=== PATIENT | male | born 1950 | race Caucasian/White ===

== ENCOUNTER 2017-01-07 09:16 | Day surgery (SDC) | payer MEDICARE ==
[2017-01-05 12:55] VITALS: BMI 19.2
[~2017-01-07 09:16] MED LIST: LACTATED RINGERS 1,000 ML IV SCH; LIDOCAINE 1% 20 ML VIAL (10MG/ML) FOR IV START INTRADERMA PRN
[2017-01-07 09:46] VITALS: RESP 16; TEMP 97
[2017-01-07 09:53] LABS: Glucose,Whole Blood 159 mg/dL (75-99)
[2017-01-07] MEDS ORDERED: PROPOFOL 10 MG/ML 20 ML VIAL IV ONE (10:44)
--- NOTE | 2017-01-07 11:02 | P.PCN ---
Date of Procedure: 01/07/17 Procedure(s) Performed: BRIEF HISTORY: Patient is a 66-year-old pleasant white male, scheduled for an elective colonoscopy as a part of screening for colorectal neoplasia. He does have family history of colon cancer. PROCEDURE PERFORMED: Colonoscopy. PREOPERATIVE DIAGNOSIS: Screening for colon cancer and family history of colon cancer. IV sedation per Anesthesia. PROCEDURE: After informed consent was obtained, the patient, was brought into the endoscopy unit. IV sedation was administered by Anesthesia under continuous monitoring. Digital rectal examination was normal. Initially the Olympus CF- 160 flexible video colonoscope was then inserted in the rectum, gradually advanced into the cecum without any difficulty. Careful examination was performed as the scope was gradually being withdrawn. Ileocecal valve and the appendiceal orifice were visualized and appeared normal. Prep was excellent. Mucosa of the cecum, ascending colon, transverse colon, descending colon, sigmoid colon, and rectum appeared normal. Retroflexion was performed in the rectum and no lesions were seen. The patient tolerated the procedure well. IMPRESSION: Normal-appearing colon from rectum to cecum with no evidence of colorectal neoplasia . RECOMMENDATIONS: Findings of this examination were discussed with the patient as well as his family. He was advised to have a repeat screening colonoscopy in 5 years from now because of a family history of colon cancer.
[2017-01-07 11:28] VITALS: BP 117/74; PULSE 68
== END 2017-01-07 11:53 | disposition home or self-care (01) ==
LOC: ORWHC2ENDO 09:16
PROVIDERS: ATTEND Internal Medicine Gastroenterology
DX: Z12.11 Encounter for screening for malignant neoplasm of colon (principal); Z80.0 Family history of malignant neoplasm of digestive organs; I48.91 Unspecified atrial fibrillation; J45.909 Unspecified asthma, uncomplicated; N40.0 Benign prostatic hyperplasia without lower urinary tract symptoms; E11.9 Type 2 diabetes mellitus without complications; Z79.01 Long term (current) use of anticoagulants; Z79.84 Long term (current) use of oral hypoglycemic drugs; Z79.899 Other long term (current) drug therapy
CPT/HCPCS: J2704; G0105

== ENCOUNTER 2022-01-02 08:43 | Day surgery (SDC) | payer MEDICARE ==
[2021-12-22 12:21] VITALS: BMI 30.2
[~2022-01-02 08:43] MED LIST changes: +ALPRAZolam 0.25 MG TAB PO PRN; +ALPRAZolam 0.5 MG TAB PO PRN; +ASPIRIN 325 MG TAB PO STA; +ATORVASTATIN 80 MG TAB PO STA; +HEPARIN SODIUM,PORCINE 10,000 UNIT in SODIUM CHLORIDE 0.9% 1,000 ML IRRIGATION PRN; +HEPARIN SODIUM,PORCINE 2,500 UNIT in SODIUM CHLORIDE 0.9% 250 ML IRRIGATION PRN; -LACTATED RINGERS 1,000 ML IV SCH; -LIDOCAINE 1% 20 ML VIAL (10MG/ML) FOR IV START INTRADERMA PRN; +NITROGLYCERIN SL TABS 0.4 MG TAB SUBLINGUAL PRN; +SODIUM CHLORIDE 0.9% 1,000 ML in EMPTY BAG 1 BAG IV SCH
[2022-01-02] MEDS ORDERED: SODIUM CHLORIDE 0.9% 1,000 ML IV ONE ×2 (09:00→10:00)
[2022-01-02 09:12] LABS: Glucose,Whole Blood 148 mg/dL (75-99)
[2022-01-02 09:27] LABS: Basophils # (A) 0.1 k/uL (0-0.2); Basophils % (A) 1 %; Eosinophils # (A) 0.4 k/uL (0-0.7); Eosinophils % (A) 4 %; HCT 51.1 % (39.0-53.0); HGB 17.4 gm/dL (13.0-17.5); Lymphocytes # (A) 1.3 k/uL (1.0-4.8); Lymphocytes % (A) 14 %; MCHC 34.1 g/dL (31.0-37.0); MCV 91.1 fL (80.0-100.0); Mean Platelet Volume 7.5; Monocytes # (A) 0.6 k/uL (0-1.0); Monocytes % (A) 6 %; Neutrophils # (A) 7.1 k/uL (1.3-7.7); Neutrophils % (A) 74 %; Platelet Count 209 k/uL (150-450); RBC 5.61 m/uL (4.30-5.90); WBC 9.6 k/uL (3.8-10.6)
[2022-01-02 09:29] LABS: INR 1.3 (<1.2)
[2022-01-02 09:40] LABS: African American GFR (CKD) >90 (>60 ml/min/1.73 sqM); Anion Gap 8 mmol/L; Blood Urea Nitrogen 14 mg/dL (9-20); Calcium 9.3 mg/dL (8.4-10.2); Carbon Dioxide 28 mmol/L (22-30); Chloride 104 mmol/L (98-107); Glucose 163 mg/dL (74-99); Non-African American GFR(CKD) 81 (>60 ml/min/1.73 sqM); Potassium 4.1 mmol/L (3.5-5.1); Sodium 140 mmol/L (137-145)
[2022-01-02] MEDS ORDERED: fentaNYL (PF) 50 MCG/ML 2 ML AMP ONE (10:11)
[2022-01-02] MEDS ORDERED: VERAPAMIL 2.5 MG/ML 2 ML AMP ONE (10:11)
[2022-01-02] MEDS ORDERED: HEPARIN SODIUM 1,000 UN/ML (10ML VL) ONE (10:12)
[2022-01-02] MEDS ORDERED: fentaNYL (PF) 50 MCG/ML 2 ML AMP IVP ONE (10:41)
[2022-01-02] MEDS ORDERED: MIDAZOLAM 2 MG/2 ML VIAL IVP ONE (10:41)
[2022-01-02] MEDS ORDERED: LIDOCAINE 1% INJ 10MG/ML (5 ML VIAL-PF) SQ ONE (10:44)
[2022-01-02] MEDS ORDERED: VERAPAMIL SYRINGE (5 MG/10 ML) INTRAARTER ONE (10:46)
[2022-01-02] MEDS ORDERED: HEPARIN SODIUM 1,000 UN/ML (10ML VL) IV ONE (10:48)
[2022-01-02] MEDS ORDERED: IOPAMIDOL-370 100ML BTL INJ ONE (11:16)
--- NOTE | 2022-01-02 11:58 | CC ---
CARDIAC CATHETERIZATION REPORT INDICATION: Chest pain with abnormal stress test showing ischemia in LAD distribution. PROCEDURE NOTE: After obtaining informed consent, left heart catheterization and coronary angiogram were performed via the right radial artery using size 3.5 right Gil, 3.5 and 4 left Gil catheters, and a pigtail catheter to obtain left ventricular hemodynamics. Patient tolerated the procedure well without any obvious immediate complications. He received moderate conscious sedation and total sedation time was 21 minutes. With a micropuncture needle using Seldinger technique, right radial artery access was obtained and patient received 5 mg of verapamil and 5000 units of heparin as per protocol. Catheters and wires were manipulated into the ascending aorta under fluoroscopic guidance. Patient tolerated the procedure well without any obvious immediate complications. A TR band was used for hemostasis. FINDINGS: HEMODYNAMICS: Left ventricular end-diastolic pressure is 14 mm. There is no significant gradient across the aortic valve. LEFT VENTRICULOGRAM: Left ventriculogram was not performed. ANGIOGRAPHIC DATA: Left main coronary artery is a normal-sized vessel and is free of stenosis. It divides into left anterior descending coronary artery and circumflex coronary artery. Circumflex coronary artery is a large codominant system and is free of significant disease. It gives [id number] collaterals to the distal LAD. There is a long segment of occlusion in the proximal LAD. Right coronary artery is a large codominant vessel and is free of significant disease. 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 I reviewed angiographic data with Dr. Joseph Calderon, the on-call roaster helper, who felt that catheter-based revascularization of the LAD is complicated and high-risk. Hence we decided to treat him with optimal medical therapy and if he has symptoms in spite of this refer him for intervention on a chronic totally occluded vessel. I discussed these issues at length with the patient. He understands and is in agreement with the plan. MMODL / IJN: [id number] /
[2022-01-02] MEDS ORDERED: RX INFO: IV CONTRAST WAS GIVEN 1 EACH MISC MISCELLANE PRN (13:17)
[2022-01-02] MEDS ORDERED: SODIUM CHLORIDE 0.9% 1,000 ML IV SCH (13:30)
[2022-01-02 13:56] VITALS: RESP 18; TEMP 97.8
[2022-01-02 15:10] VITALS: BP 152/61; PULSE 66
== END 2022-01-02 15:05 | disposition home or self-care (01) ==
LOC: CATHCVL 08:43
PROVIDERS: ATTEND Internal Medicine Cardiovascular Disease
DX: R94.39 Abnormal result of other cardiovascular function study (principal); I25.10 Atherosclerotic heart disease of native coronary artery without angina pectoris; I25.82 Chronic total occlusion of coronary artery; I10 Essential (primary) hypertension; E78.2 Mixed hyperlipidemia; E11.9 Type 2 diabetes mellitus without complications; I48.92 Unspecified atrial flutter; Z87.891 Personal history of nicotine dependence; I48.0 Paroxysmal atrial fibrillation; Z79.01 Long term (current) use of anticoagulants; Z79.84 Long term (current) use of oral hypoglycemic drugs; Z79.899 Other long term (current) drug therapy; Z88.5 Allergy status to narcotic agent
CPT/HCPCS: 93458; 80048; 85025; 85610; C1894; J2250; J2001; J3010; J1644; Q9967

== ENCOUNTER → 2022-06-24 | Outpatient (CLI) | payer MEDICARE ==
[2022-06-24 14:11] LABS: Basophils # (A) 0.08 X 10*3/uL (0.00-0.10); Basophils % (A) 0.8 %; Eosinophils # (A) 0.34 X 10*3/uL (0.04-0.35); Eosinophils % (A) 3.3 %; HGB 17.6 g/dL (13.0-17.0); Immature Grans, Automated 0.5 %; Lymphocytes # (A) 1.41 X 10*3/uL (0.90-5.00); Lymphocytes % (A) 13.9 %; MCH 31.2 pg (27.0-32.0); MCHC 34.5 g/dL (32.0-37.0); MCV 90.3 fL (80.0-97.0); Mean Platelet Volume 10.5 fL (9.5-12.2); Monocytes # (A) 0.85 X 10*3/uL (0.20-1.00); Monocytes % (A) 8.3 %; NRBC Per 100 WBC 0 /100 WBCS (0.0-0.0); Neutrophils # (A) 7.45 X 10*3/uL (1.80-7.70); Neutrophils % (A) 73.2 %; Platelet Count 239 X 10*3/uL (140-440); RBC 5.65 X 10*6/uL (4.40-5.60); WBC 10.18 X 10*3/uL (4.50-10.00)
[2022-06-24 14:23] LABS: African American GFR (CKD) 79.6 (60.0-200.0); Albumin 4.5 g/dL (3.8-4.9); Albumin/Globulin Ratio 1.56 (1.60-3.17); Anion Gap 10.6 mmol/L (10.00-18.00); BUN/Creat Ratio 12.04 Ratio (12.00-20.00); Calcium 9.9 mg/dL (8.7-10.3); Carbon Dioxide 27.9 mmol/L (20.0-27.5); Globulin 2.9 g/dL (1.6-3.3); Non-African American GFR(CKD) 68.7 (60.0-200.0); Potassium 4.4 mmol/L (3.5-5.5); Total Bilirubin 0.7 mg/dL (0.30-1.20); Total Protein 7.5 g/dL (6.2-8.2)
== END | disposition home or self-care (01) ==
LOC: LABPAT 09:42
PROVIDERS: ATTEND Urology
DX: Z01.812 Encounter for preprocedural laboratory examination (principal); D41.01 Neoplasm of uncertain behavior of right kidney
CPT/HCPCS: 80053; 85025

== ENCOUNTER 2022-07-02 05:37 | Inpatient (IN) | payer MEDICARE ==
[2022-06-30 11:37] VITALS: BMI 29.9
--- NOTE | 2022-07-01 19:59 | P.GSHP ---
History of Present Illness H&P Date: 07/01/22 Chief Complaint: Right renal mass The patient is a 72-year-old white male with a history of BPH. He recently underwent a CT scan, which revealed a 5.5 cm enhancing right solid renal mass. The mass is suspicious for renal cell carcinoma, and is not amenable to a partial nephrectomy. He has lost been advised to undergo a right radical nephrectomy. He was offered the option of undergoing a laparoscopic nephrectomy, but chose to undergo an open procedure because it can be done sooner. He has been cleared by Cardiology (Dr. Jhaveri). - Constitutional Constitutional: Denies weight loss - Genitourinary (Male) Genitourinary: Denies flank pain, Denies hematuria Past Medical History Past Medical History: Atrial Fibrillation, Asthma, COPD, Diabetes Mellitus, Hearing Disorder / Deafness, Hyperlipidemia, Hypertension, Osteoarthritis (OA), Prostate Disorder, Sleep Apnea/CPAP/BIPAP Additional Past Medical History / Comment(s): mass right kidney, BPH, uses CPAP, nasal dryness that bleeds at times, right hearing aid, deaf in left ear, aortic anuerysm, umbilical hernia, left inguinal hernia History of Any Multi-Drug Resistant Organisms: None Reported Past Surgical History: Heart Catheterization With Stent, Hernia Repair, Joint Replacement, Orthopedic Surgery Additional Past Surgical History / Comment(s): Bilateral knee replacements, bilateral inguinal hernia, bilateral cataract removal, sinus surgery Past Anesthesia/Blood Transfusion Reactions: No Reported Reaction Additional Past Anesthesia/Blood Transfusion Reaction / Comment(s): no hx blood transfusion Date of Last Stent Placement:: 01-02-22 Smoking Status: Former smoker - Past Family History Mother Family Medical History: Cancer Additional Family Medical History / Comment(s): Colon cancer. Father Family Medical History: Cancer Additional Family Medical History / Comment(s): Lung cancer. Medications and Allergies Home Medications Medication Instructions Recorded Confirmed Type Albuterol Sulfate [Proair Hfa] 1 - 2 puff INHALATION Q6HR PRN 01/05/17 06/30/22 History Docusate Sodium [Dok] 250 mg PO 1400 01/05/17 06/30/22 History Metoprolol Tartrate [Lopressor] 25 mg PO BID 01/05/17 06/30/22 History Montelukast [Singulair] 10 mg PO HS 01/05/17 06/30/22 History Simvastatin [Zocor] 20 mg PO HS 01/05/17 06/30/22 History Tamsulosin HCl [Flomax] 0.8 mg PO HS 01/05/17 06/30/22 History allopurinoL [Zyloprim] 100 mg PO DAILY 01/05/17 06/30/22 History Fexofenadine HCl [Rochelle Allergy] 180 mg PO HS 12/22/21 06/30/22 History Finasteride [Proscar] 5 mg PO HS 12/22/21 06/30/22 History metFORMIN HCL [Glucophage] 500 mg PO BID 12/22/21 06/30/22 History Apixaban [Eliquis] 5 mg PO BID 06/30/22 06/30/22 History Cholecalciferol [Vitamin D3 (25 25 mcg PO DAILY 06/30/22 06/30/22 History Mcg = 1000 Iu)] HYDROcodone/APAP 5-325MG [[place] 1 - 2 tab PO Q4H PRN 06/30/22 06/30/22 History 5-325] Pregabalin [Lyrica] 150 mg PO HS 06/30/22 06/30/22 History Propafenone [Rythmol] 225 mg PO BID 06/30/22 06/30/22 History sitaGLIPtin [Januvia] 100 mg PO QAM 06/30/22 06/30/22 History Allergies Allergy/AdvReac Type Severity Reaction Status Date / Time codeine Allergy Dyspnea Verified 06/30/22 11:00 Surgical - Exam - General well developed, well nourished, no distress - Neck no masses, trachea midline - Respiratory normal respiratory effort - Abdomen Abdomen: soft, non tender, no guarding, no rigid, no rebound Hernia: inguinal, umbilical - Genitourinary normal penis with no external lesions, testicles non-tender - Rectum Rectum: normal sphincter tone, no masses, other (Prostate moderately enlarged but smooth) - Psychiatric oriented to time, oriented to person, oriented to place, speech is normal, memory intact Results - Imaging CT scan - abdomen: report reviewed, image reviewed Assessment and Plan (1) Neoplasm of uncertain behavior of right kidney Status: Acute Code(s): D41.01 - NEOPLASM OF UNCERTAIN BEHAVIOR OF RIGHT KIDNEY SNOMED Code(s): 464952204175398 Plan: Right radical nephrectomy. The procedure has been reviewed in detail with the patient and his . The patient is aware of the likelihood of malignancy. The anticipated perioperative course has been discussed. Potential risks have also been reviewed in detail. These include anesthesia, bleeding, infection, bowel injury, hepatic injury, postoperative paralytic ileus, chylous ascites, and development of incisional hernia.
[2022-07-02] MEDS ORDERED: fentaNYL (PF) 50 MCG/ML 2 ML AMP IV PRN (06:18)
[2022-07-02] MEDS ORDERED: ONDANSETRON 4 MG/2 ML VIAL IVP ONE (06:18)
[2022-07-02] MEDS ORDERED: DEXAMETHASONE SOD PHOSPHATE 4 MG/ML 1 ML VIAL IV ONE (06:18)
[2022-07-02] MEDS ORDERED: LIDOCAINE 1% (10MG/ML) FOR IV START INTRADERMA ONE ×2 (06:50)
[2022-07-02] MEDS: LACTATED RINGERS 1,000 ML IV SCH (06:50)
[2022-07-02] MEDS ORDERED: HEPARIN SODIUM,PORCINE/PF 5,000 UNIT/0.5 ML SYRINGE SQ PRN (07:00)
[2022-07-02 07:06] LABS: Glucose,Whole Blood 176 mg/dL (70-110)
[2022-07-02 07:26] LABS: Prothrombin Time 10.6 sec (9.0-12.0)
[2022-07-02] MEDS ORDERED: fentaNYL (PF) 50 MCG/1 ML VIAL IV ONE (07:30)
[2022-07-02] MEDS ORDERED: MIDAZOLAM 2 MG/2 ML VIAL IV ONE (07:30)
[2022-07-02] MEDS ORDERED: ROCURONIUM 10 MG/ML (5 ML VIAL) IV ONE (07:40)
[2022-07-02] MEDS ORDERED: GLYCOPYRROLATE 0.2 MG/ML 2 ML VIAL ONE (07:40)
[2022-07-02] MEDS ORDERED: PROPOFOL 10 MG/ML 20 ML VIAL IV ONE (07:40)
[2022-07-02] MEDS ORDERED: fentaNYL (PF) 50 MCG/ML 2 ML AMP ONE (07:40)
[2022-07-02] MEDS ORDERED: NEOSTIGMINE 1 MG/ML 10 ML VIAL ONE (07:40)
[2022-07-02] MEDS ORDERED: ePHEDrine 50 MG/ML 1 ML VIAL ONE (07:40)
[2022-07-02] MEDS ORDERED: SUCCINYLCHOLINE CHLORIDE 200 MG/10 ML VIAL IV ONE (07:40)
[2022-07-02] MEDS ORDERED: LIDOCAINE 2% INJ 20 MG/ML (2 ML VIAL) ONE (07:40)
[2022-07-02] MEDS ORDERED: NALOXONE 0.4 MG/ML 1 ML VIAL IV PRN (07:43)
--- NOTE | 2022-07-02 07:51 | P.ANPRN ---
Procedure Note - Anesthesia - Epidural/Spinal Epidural Continuous Time Out Performed: Yes Date of Procedure: 07/02/22 (730 time out) Procedure Start Time: 07:31 Procedure Stop Time: 07:39 Location of Patient: PreOp Indication: Acute Post-Operative Pain, Requested by Surgeon (amy) Sedation Type: Sedate with meaningful contact maintained Preparation: Sterile Dressing Position: Sitting Catheter Depth at Skin (cm): 14 Catheter: Indwelling Needle Guage: 18 Injectate: Test Dose Lidocaine1.5% w/1:200,000 epi (5cc) Narrative: negative test dose, negative pressure aspiration Blood Aspirated: No Pain Paresthesia on Injection Noted: No Events: Uneventful and Well Tolerated
[2022-07-02] MEDS ORDERED: LACTATED RINGERS 1,000 ML IV ONE (08:23)
[2022-07-02] MEDS: ROPIVACAINE 250 MG, fentaNYL (PF) 1,250 MCG in SODIUM CHLORIDE 0.9% 175 ML EPIDURAL PRN (10:29)
--- NOTE | 2022-07-02 10:38 | P.OP ---
Date of Procedure: 07/02/22 Preoperative Diagnosis: Right renal mass Postoperative Diagnosis: Same Procedure(s) Performed: Right radical nephrectomy [facility] Surgeon: Thomas Doe [employer] Manager #1: Jorge Rich Estimated Blood Loss (ml): 300 IV fluids (ml): 2,000 Pathology: other (Right kidney) Condition: stable Disposition: PACU Indications for Procedure: The patient is a 72-year-old white male with a history of BPH. He recently underwent a CT scan, which revealed a 5.5 cm enhancing right solid renal mass. The mass is suspicious for renal cell carcinoma, and is not amenable to a partial nephrectomy. He has thus been advised to undergo a right radical nephrectomy and comes for this reason. Operative Findings: Right lower pole renal mass. No evidence of extrarenal disease. Description of Procedure: The patient was taken to the operating room and placed in the supine position. After being given general anesthesia, the abdomen was prepped and draped sterilely. A right-sided chevron incision was made using the scalpel. The Bovie electrocautery was used to incise the subcutaneous tissues and muscular layers of the abdominal wall down to the peritoneum. The peritoneum was then carefully entered, and opened the full length of the incision. The abdomen was examined, and no abnormalities were noted other than the renal mass. Specifically, there was no evidence of malignancy elsewhere within the abdomen. The Bookwalter retractor was used for exposure. The peritoneum was incised at the line of Toldt, and a Dinorah maneuver was performed. This exposed the right kidney and the inferior vena cava. Dissection was then performed alongside the lateral aspect of the inferior vena cava. Lymphoadipose tissue was clipped and divided up to the renal hilum. There was no evidence of adenopathy. 2 right renal arteries were identified. Dissection was continued proximally along the arteries, posterior to the inferior vena cava, and the artery was ligated twice proximal to the bifurcation. The right renal vein was then likewise ligated twice proximally and distally. Each of the arterial branches was then ligated, and the right renal artery was then divided. The remaining hilar tissues were clipped and divided at this time. Once the hilar dissection had been completed, the inferior aspect of the dissection was performed. The tail of Gerota's fascia was isolated, and the ureter was clipped and divided. Blunt dissection was then performed to dissect the kidney off of the posterior abdominal wall. Superiorly, the perinephric fat was divided down to the upper pole of the kidney. The remaining dissection was then performed over the superior aspect of the kidney, thus preserving the right adrenal gland. The superior attachments were clipped prior to dividing them. Once all attachments were divided, the specimen was removed. The renal bed was irrigated with sterile water. The surgical field was examined for hemostasis. Minimal oozing was controlled with electrocautery. Hemostasis within the entire surgical field was excellent at this time. The Bookwalter retractor was removed. The abdominal contents were allowed to return to their normal location. Each individual muscle layer of the anterior abdominal wall was closed using #1 Vicryl suture in a running fashion. Hemostasis within the subcutaneous tissues was excellent. The skin was closed using brittany. A sterile gauze dressing was applied over the incision. All sponge and needle counts were correct. The patient tolerated the procedure well was taken to the recovery room in stable condition.
[2022-07-02] MEDS ORDERED: ALBUTEROL NEBULIZED 2.5 MG/3 ML INHALATION PRN (10:39)
[2022-07-02] MEDS ORDERED: diphenhydrAMINE 50 MG/ML 1 ML VIAL IVP ONE (10:44)
[2022-07-02 10:53] LABS: Glucose,Whole Blood 186 mg/dL (70-110)
[2022-07-02] MEDS: SODIUM CHLORIDE 0.9% 1,000 ML IV SCH ×2 (13:14→14:17)
[2022-07-02] MEDS: INSULIN ASPART (NovoLOG) 100 UNIT/ML VIAL SQ SCH ×3 (16:36→21:30)
[2022-07-02] MEDS: DOCUSATE ORAL SOLN 100 MG/10 ML CUP PO SCH (16:55)
[2022-07-02] MEDS: HEPARIN SODIUM,PORCINE/PF 5,000 UNIT/0.5 ML SYRINGE SQ SCH (16:56)
[2022-07-02 17:00] LABS: Glucose,Whole Blood 152 mg/dL (70-110)
[2022-07-02 20:16] LABS: Glucose,Whole Blood 180 mg/dL (70-110)
[2022-07-02] MEDS: ATORVASTATIN 10 MG TAB PO SCH (21:24)
[2022-07-02] MEDS: FINASTERIDE 5 MG TAB PO SCH (21:24)
[2022-07-02] MEDS: METOPROLOL TARTRATE 25 MG TAB PO SCH (21:24)
[2022-07-02] MEDS: MONTELUKAST 10 MG TAB PO SCH (21:24)
[2022-07-02] MEDS: PREGABALIN 75 MG CAP PO SCH (21:24)
[2022-07-02] MEDS: TAMSULOSIN 0.4 MG CAP.ER.24H PO SCH (21:24)
[2022-07-02] MEDS: PROPAFENONE 225 MG TAB PO SCH (21:24)
[2022-07-03] MEDS: SODIUM CHLORIDE 0.9% 1,000 ML IV SCH ×4 (00:33→18:25)
[2022-07-03] MEDS: HEPARIN SODIUM,PORCINE/PF 5,000 UNIT/0.5 ML SYRINGE SQ SCH ×3 (00:34→15:48)
[2022-07-03 06:14] LABS: Glucose,Whole Blood 125 mg/dL (70-110)
[2022-07-03] MEDS: INSULIN ASPART (NovoLOG) 100 UNIT/ML VIAL SQ SCH ×4 (06:21→20:57)
[2022-07-03] MEDS: allopurinoL 100 MG TAB PO SCH (07:53)
[2022-07-03] MEDS: METOPROLOL TARTRATE 25 MG TAB PO SCH ×2 (07:53→22:47)
[2022-07-03] MEDS: PROPAFENONE 225 MG TAB PO SCH (07:53)
--- NOTE | 2022-07-03 08:10 | P.PN ---
Progress Note - Text Progress Note Date: 07/03/22 (819) Anesthesia Postop day 1 Status post right radical nephrectomy with epidural Day 2 Patient seen and examined. Doing well without complaint. VAS 0 out of 10. No nausea vomiting or pruritus. Ropivacaine 0.1% with fentanyl 5 mcg/mL at 6 mL an hour. Objective: Vital signs reviewed Lungs: Good chest excursion Abdomen: Appears nondistended Other: Epidural Site Intact without induration. Dressing intact Neuro: No apparent motor block. Sensory within normal limits. Assessment: Status post right radical nephrectomy postop day 1 Plan: Continue current care with your medical management. Anticipate reevaluation tomorrow.
--- NOTE | 2022-07-03 08:44 | P.PN ---
Subjective Progress Note Date: 07/03/22 Principal diagnosis: POD #1, s/p right radical nephrectomy Patient is feeling quite well. He denies nausea, and his pain is controlled. He tolerated clear liquid diet for breakfast. He is not passing flatus. Objective - Vital Signs Vital signs: Vital Signs Temp 97.8 F 07/03/22 07:58 Pulse 67 07/03/22 07:58 Resp 16 07/03/22 07:58 BP 109/65 07/03/22 07:58 Pulse Ox 91 L 07/03/22 07:58 FiO2 Intake & Output 07/02/22 07/03/22 07/03/22 18:59 06:59 18:59 Intake Total 2726 Output Total 600 Balance 2126 Weight 110.2 kg Intake: IV 2726 Output: Urine 300 Estimated Blood Loss 300 - Constitutional General appearance: Present: average body habitus, cooperative, no acute distress - Gastrointestinal Gastrointestinal Comment(s): Soft, non-distended. Dressing clean and dry. - Psychiatric Psychiatric: Present: A&O x's 3 - Labs Labs: Abnormal Lab Results - Last 24 Hours (Table) 07/02/22 07/02/22 07/02/22 Range/Units 10:51 16:59 20:13 POC Glucose (mg/dL) 186 H 152 H 180 H (70-110) mg/dL 07/03/22 Range/Units 06:11 POC Glucose (mg/dL) 125 H (70-110) mg/dL Assessment and Plan (1) Neoplasm of uncertain behavior of right kidney Current Visit: No Status: Acute Code(s): D41.01 - NEOPLASM OF UNCERTAIN BEHAVIOR OF RIGHT KIDNEY SNOMED Code(s): 894576605000963 Plan: The Eubanks catheter will be removed, ambulation increased, diet advanced. Anticipate removal of the epidural catheter tomorrow. Patient's hopeful to be discharged home tomorrow.
[2022-07-03 10:41] LABS: Basophils # (A) 0.05 X 10*3/uL (0.00-0.10); Basophils % (A) 0.4 %; Eosinophils # (A) 0.05 X 10*3/uL (0.04-0.35); Eosinophils % (A) 0.4 %; HCT 46.7 % (39.6-50.0); HGB 15.3 g/dL (13.0-17.0); Immature Grans, Automated 0.3 %; Lymphocytes # (A) 1.95 X 10*3/uL (0.90-5.00); Lymphocytes % (A) 17.5 %; MCH 30.6 pg (27.0-32.0); MCHC 32.8 g/dL (32.0-37.0); MCV 93.4 fL (80.0-97.0); Monocytes # (A) 1.07 X 10*3/uL (0.20-1.00); Monocytes % (A) 9.6 %; NRBC Per 100 WBC 0 /100 WBCS (0.0-0.0); Neutrophils # (A) 8.01 X 10*3/uL (1.80-7.70); Neutrophils % (A) 71.8 %; Platelet Count 184 X 10*3/uL (140-440); RDW 12.3 % (11.5-14.5); WBC 11.16 X 10*3/uL (4.50-10.00)
[2022-07-03 11:37] LABS: Glucose,Whole Blood 168 mg/dL (70-110)
[2022-07-03] MEDS: DOCUSATE ORAL SOLN 100 MG/10 ML CUP PO SCH (14:53)
[2022-07-03] MEDS: ROPIVACAINE 250 MG, fentaNYL (PF) 1,250 MCG in SODIUM CHLORIDE 0.9% 175 ML EPIDURAL PRN (16:10)
[2022-07-03 17:22] LABS: Glucose,Whole Blood 133 mg/dL (70-110)
[2022-07-03 20:48] LABS: Glucose,Whole Blood 135 mg/dL (70-110)
[2022-07-03] MEDS ORDERED: MAGNESIUM HYDROXIDE 2,400 MG/10 ML CUP PO PRN (22:44)
[2022-07-03] MEDS: MONTELUKAST 10 MG TAB PO SCH (22:46)
[2022-07-03] MEDS: TAMSULOSIN 0.4 MG CAP.ER.24H PO SCH (22:46)
[2022-07-03] MEDS: ATORVASTATIN 10 MG TAB PO SCH (22:47)
[2022-07-03] MEDS: PREGABALIN 75 MG CAP PO SCH (22:47)
[2022-07-03] MEDS: FINASTERIDE 5 MG TAB PO SCH (22:48)
[2022-07-04] MEDS: PROPAFENONE 225 MG TAB PO SCH ×2 (00:01→08:01)
[2022-07-04] MEDS: HEPARIN SODIUM,PORCINE/PF 5,000 UNIT/0.5 ML SYRINGE SQ SCH ×2 (00:02→08:01)
[2022-07-04 05:55] LABS: Glucose,Whole Blood 125 mg/dL (70-110)
[2022-07-04] MEDS: INSULIN ASPART (NovoLOG) 100 UNIT/ML VIAL SQ SCH ×2 (06:04→12:00)
[2022-07-04] MEDS: LACTATED RINGERS 1,000 ML IV SCH (06:04)
[2022-07-04 07:44] VITALS: BP 115/64; PULSE 86; RESP 16; TEMP 98.5
[2022-07-04] MEDS ORDERED: HYDROcodone/APAP 5-325MG 1 EACH TAB PO PRN ×2 (07:56)
[2022-07-04] MEDS: METOPROLOL TARTRATE 25 MG TAB PO SCH (08:01)
[2022-07-04] MEDS: allopurinoL 100 MG TAB PO SCH (08:01)
[2022-07-04 10:46] LABS: African American GFR (CKD) 54 (>60 ml/min/1.73 sqM); Anion Gap 5 mmol/L; Blood Urea Nitrogen 12 mg/dL (9-20); Calcium 7.9 mg/dL (8.4-10.2); Carbon Dioxide 26 mmol/L (22-30); Chloride 101 mmol/L (98-107); Glucose 178 mg/dL (74-99); Non-African American GFR(CKD) 47 (>60 ml/min/1.73 sqM); Sodium 132 mmol/L (137-145)
--- NOTE | 2022-07-04 11:01 | P.PN ---
Progress Note - Text 07/04/22 1033am 22-year-old male is post radical nephrectomy. Patient has an epidural catheter for postop pain control with the solution running at 6 mL an hour with a VAS of 4. No weakness or numbness noted in the lower extremities. Plan to DC the epidural nurse informed
[2022-07-04] MEDS: SODIUM CHLORIDE 0.9% 1,000 ML IV SCH (12:00)
--- NOTE | 2022-07-04 12:04 | P.DS ---
Providers Date of admission: 07/02/22 05:37 Expected date of discharge: 07/04/22 Attending physician: Thomas Doe Primary care physician: James Subramanian - Discharge Diagnosis(es) (1) Neoplasm of uncertain behavior of right kidney Current Visit: Yes Status: Acute Hospital Course: On the day of admission, the patient underwent an uncomplicated right radical nephrectomy. The perioperative course was unremarkable. The patient remained afebrile with stable vital signs. On the first postoperative day, the patient tolerated diet and ambulated. The Eubanks catheter was removed, but the patient developed urinary retention requiring replacement of the Eubanks catheter. Approximately 1 L of urine was drained from the bladder. He felt better upon catheter placement. On the second postoperative day, the patient reported that he was drinking plenty of fluids, eating lightly, and ambulating without difficulty. He denied chest pain, dyspnea, and nausea. His pain was controlled. On examination, the abdomen was soft. The incision was clean and dry. The Eubanks catheter was draining clear yellow urine. Procedures: Right radical nephrectomy on 07/02/2022 Patient Condition at Discharge: Good Plan - Discharge Summary Discharge Rx Participant: No New Discharge Prescriptions: New HYDROcodone/APAP 5-325MG [[place] 5-325] 1 - 2 tab PO Q4HR PRN #10 tab PRN Reason: Pain No Action Albuterol Sulfate [Proair Hfa] 1 - 2 puff INHALATION Q6HR PRN PRN Reason: sob allopurinoL [Zyloprim] 100 mg PO DAILY Simvastatin [Zocor] 20 mg PO HS Tamsulosin HCl [Flomax] 0.8 mg PO HS Montelukast [Singulair] 10 mg PO HS Metoprolol Tartrate [Lopressor] 25 mg PO BID Docusate Sodium [Dok] 250 mg PO 1400 Pregabalin [Lyrica] 150 mg PO HS Apixaban [Eliquis] 5 mg PO BID Propafenone [Rythmol] 225 mg PO BID metFORMIN HCL [Glucophage] 500 mg PO BID Finasteride [Proscar] 5 mg PO HS Fexofenadine HCl [Rochelle Allergy] 180 mg PO HS Cholecalciferol [Vitamin D3 (25 Mcg = 1000 Iu)] 25 mcg PO DAILY HYDROcodone/APAP 5-325MG [[place] 5-325] 1 - 2 tab PO Q4H PRN PRN Reason: Pain sitaGLIPtin [Januvia] 100 mg PO QAM Discharge Medication List Albuterol Sulfate [Proair Hfa] 1 - 2 puff INHALATION Q6HR PRN 01/05/17 [History] Docusate Sodium [Dok] 250 mg PO 1400 01/05/17 [History] Metoprolol Tartrate [Lopressor] 25 mg PO BID 01/05/17 [History] Montelukast [Singulair] 10 mg PO HS 01/05/17 [History] Simvastatin [Zocor] 20 mg PO HS 01/05/17 [History] Tamsulosin HCl [Flomax] 0.8 mg PO HS 01/05/17 [History] allopurinoL [Zyloprim] 100 mg PO DAILY 01/05/17 [History] Fexofenadine HCl [Rochelle Allergy] 180 mg PO HS 12/22/21 [History] Finasteride [Proscar] 5 mg PO HS 12/22/21 [History] metFORMIN HCL [Glucophage] 500 mg PO BID 12/22/21 [History] Apixaban [Eliquis] 5 mg PO BID 06/30/22 [History] Cholecalciferol [Vitamin D3 (25 Mcg = 1000 Iu)] 25 mcg PO DAILY 06/30/22 [History] HYDROcodone/APAP 5-325MG [[place] 5-325] 1 - 2 tab PO Q4H PRN 06/30/22 [History] Pregabalin [Lyrica] 150 mg PO HS 06/30/22 [History] Propafenone [Rythmol] 225 mg PO BID 06/30/22 [History] sitaGLIPtin [Januvia] 100 mg PO QAM 06/30/22 [History] HYDROcodone/APAP 5-325MG [[place] 5-325] 1 - 2 tab PO Q4HR PRN #10 tab 07/04/22 [Rx] Follow up Appointment(s)/Referral(s): Thomas Doe MD [STAFF PHYSICIAN] - 07/10/22 Patient Instructions/Handouts: Eubanks Catheter Placement and Care (DC), Nephrectomy (DC) Activity/Diet/Wound Care/Special Instructions: Discharge home with Eubanks catheter. Diet as tolerated. Okay to shower. No lifting, driving, or strenuous activity. Instruct patient to remove Eubanks catheter at bedtime on 07/09/2022. Patient should call Dr. Doe' office to schedule follow-up appointment in 07/10/2022. Discharge Disposition: HOME SELF-CARE
[2022-07-04] MEDS: DOCUSATE ORAL SOLN 100 MG/10 ML CUP PO SCH (12:42)
[2022-07-06 08:58] LABS: Glucose,Whole Blood 144 mg/dL (70-110)
--- NOTE | 2022-07-09 13:04 | CDI ---
Documentation Clarification Form Date: 07/09/2022 12:36:00 PM From: Abby Barney Admit Date: 07/02/2022 05:37:00 AM Patient Name: Bernard Rosa Visit Number: [id number] Discharge Date: 07/04/2022 02:08:00 PM ATTENTION: The Clinical Documentation Specialists (CDI) and [facility] Coding Staff appreciate your assistance in clarifying documentation. Please respond to the clarification below the line at the bottom and electronically sign. The CDI & [facility] Coding staff will review the response and follow-up if needed. Please note: Queries are made part of the Legal Health Record. If you have any questions, please contact the author of this message via ITS. Dr. 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 Per DCS patient has Neoplasm of uncertain behavior of right kidney. Coding guidelines do not allow coding professionals to code based on pathology results; therefore, clarification is requested. History/risk factors: Neoplasm kidney Clinical Indicators: Treatment: Right radical nephrectomy Please clarify if you agree with the pathology report diagnosis of Renal cell carcinoma Grade 2. [ X] Yes [ ] No [ ] Other (please specify) [ ] Unable to determine MTDD
== END 2022-07-04 14:08 | disposition home or self-care (01) | DRG 658 ==
LOC: 2ORMAIN 05:37 → 4SSUR 13:46
PROVIDERS: ADMIT Urology; ATTEND Urology
PROC: 0TT00ZZ Resection of Right Kidney, Open Approach (ICD-10-PCS; principal; 2022-07-02 07:30)
DX: C64.1 Malignant neoplasm of right kidney, except renal pelvis (principal); E11.9 Type 2 diabetes mellitus without complications; E78.5 Hyperlipidemia, unspecified; H91.92 Unspecified hearing loss, left ear; I10 Essential (primary) hypertension; I48.91 Unspecified atrial fibrillation; I89.8 Other specified noninfective disorders of lymphatic vessels and lymph nodes; J44.9 Chronic obstructive pulmonary disease, unspecified; K43.2 Incisional hernia without obstruction or gangrene; N40.1 Benign prostatic hyperplasia with lower urinary tract symptoms; R33.8 Other retention of urine; G47.30 Sleep apnea, unspecified; M19.90 Unspecified osteoarthritis, unspecified site; Z79.01 Long term (current) use of anticoagulants; Z79.84 Long term (current) use of oral hypoglycemic drugs; Z79.899 Other long term (current) drug therapy; Z80.0 Family history of malignant neoplasm of digestive organs; Z80.1 Family history of malignant neoplasm of trachea, bronchus and lung; Z87.891 Personal history of nicotine dependence; Z88.5 Allergy status to narcotic agent
CPT/HCPCS: 80048; 85025; 85610; 85730; 86850; 86900; 86901; 88307

== ENCOUNTER → 2022-12-03 | Outpatient (CLI) | payer MEDICARE ==
[2022-12-04 01:26] LABS: Basophils # (A) 0.08 X 10*3/uL (0.00-0.10); Basophils % (A) 0.8 %; Eosinophils # (A) 0.27 X 10*3/uL (0.04-0.35); Eosinophils % (A) 2.6 %; HCT 48.6 % (39.6-50.0); HGB 15.7 g/dL (13.0-17.0); Immature Grans, Automated 0.5 %; Lymphocytes # (A) 1.48 X 10*3/uL (0.90-5.00); Lymphocytes % (A) 14.2 %; MCH 30.2 pg (27.0-32.0); MCHC 32.3 g/dL (32.0-37.0); MCV 93.5 fL (80.0-97.0); Mean Platelet Volume 10.8 fL (9.5-12.2); Monocytes # (A) 0.67 X 10*3/uL (0.20-1.00); Monocytes % (A) 6.4 %; NRBC Per 100 WBC 0 /100 WBCS (0.0-0.0); Neutrophils # (A) 7.89 X 10*3/uL (1.80-7.70); Neutrophils % (A) 75.5 %; Platelet Count 247 X 10*3/uL (140-440); RDW 12.8 % (11.5-14.5); WBC 10.44 X 10*3/uL (4.50-10.00)
== END | disposition home or self-care (01) ==
LOC: LABPAT 14:07
PROVIDERS: ATTEND Surgery
DX: Z01.812 Encounter for preprocedural laboratory examination (principal); K40.20 Bilateral inguinal hernia, without obstruction or gangrene, not specified as recurrent
CPT/HCPCS: 85025; 86850; 86900; 86901

== ENCOUNTER 2022-12-15 06:30 | Day surgery (SDC) | payer MEDICARE ==
[2022-12-10 11:13] VITALS: BMI 29.9
[~2022-12-15 06:30] MED LIST changes: +ACETAMINOPHEN TAB 500 MG TAB PO PRN; -ALPRAZolam 0.25 MG TAB PO PRN; -ALPRAZolam 0.5 MG TAB PO PRN; -ASPIRIN 325 MG TAB PO STA; -ATORVASTATIN 80 MG TAB PO STA; -HEPARIN SODIUM,PORCINE 10,000 UNIT in SODIUM CHLORIDE 0.9% 1,000 ML IRRIGATION PRN; -HEPARIN SODIUM,PORCINE 2,500 UNIT in SODIUM CHLORIDE 0.9% 250 ML IRRIGATION PRN; +HEPARIN SODIUM,PORCINE/PF 5,000 UNIT/0.5 ML SYRINGE SQ PRN; -NITROGLYCERIN SL TABS 0.4 MG TAB SUBLINGUAL PRN; -SODIUM CHLORIDE 0.9% 1,000 ML in EMPTY BAG 1 BAG IV SCH
[2022-12-15] MEDS ORDERED: HYDROmorphone 0.5 MG/0.5 ML SYRINGE IVP PRN (07:11)
[2022-12-15] MEDS ORDERED: LACTATED RINGERS 1,000 ML IV SCH (07:11)
[2022-12-15] MEDS ORDERED: LIDOCAINE 1% (10MG/ML) FOR IV START INTRADERMA PRN (07:11)
[2022-12-15] MEDS ORDERED: ONDANSETRON 4 MG/2 ML VIAL IVP ONE (07:11)
[2022-12-15] MEDS ORDERED: DEXAMETHASONE SOD PHOSPHATE 4 MG/ML 1 ML VIAL IV ONE (07:11)
[2022-12-15 07:41] LABS: Glucose,Whole Blood 152 mg/dL (70-110)
[2022-12-15] MEDS ORDERED: fentaNYL (PF) 50 MCG/1 ML VIAL IV ONE (08:09)
[2022-12-15] MEDS ORDERED: MIDAZOLAM 2 MG/2 ML VIAL IV ONE (08:09)
[2022-12-15 08:20] LABS: Albumin 4.7 g/dL (3.5-5.0); Calcium 9.9 mg/dL (8.4-10.2); Potassium 4.5 mmol/L (3.5-5.1); Total Bilirubin 1.1 mg/dL (0.2-1.3); Total Protein 7.6 g/dL (6.3-8.2)
[2022-12-15] MEDS ORDERED: ePHEDrine 50 MG/ML 1 ML VIAL ONE (08:43)
[2022-12-15] MEDS ORDERED: MIDAZOLAM 2 MG/2 ML VIAL ONE (08:43)
[2022-12-15] MEDS ORDERED: ROPIVACAINE 5 MG/ML 30 ML VIAL ONE (08:43)
[2022-12-15] MEDS ORDERED: KETAMINE 10 MG/ML 20 ML VIAL ONE (08:43)
[2022-12-15] MEDS ORDERED: SODIUM CHLORIDE 0.9% (PF) 10 ML VIAL ONE (08:43)
[2022-12-15] MEDS ORDERED: NEOSTIGMINE 1 MG/ML 10 ML VIAL ONE (08:43)
[2022-12-15] MEDS ORDERED: GLYCOPYRROLATE 0.2 MG/ML 2 ML VIAL ONE (08:43)
[2022-12-15] MEDS ORDERED: PHENYLEPHRINE-0.9% NACL SYG 1,000 MCG/10 ML SYRINGE ONE (08:43)
[2022-12-15] MEDS ORDERED: SUCCINYLCHOLINE CHLORIDE 200 MG/10 ML VIAL IV ONE (08:43)
[2022-12-15] MEDS ORDERED: LIDOCAINE 2% INJ 20 MG/ML (2 ML VIAL) ONE (08:43)
[2022-12-15] MEDS ORDERED: DEXAMETHASONE SOD PHOSPHATE 4 MG/ML 1 ML VIAL ONE ×2 (08:43)
[2022-12-15] MEDS ORDERED: ROCURONIUM 10 MG/ML (5 ML VIAL) IV ONE (08:43)
[2022-12-15] MEDS ORDERED: fentaNYL (PF) 50 MCG/ML 2 ML AMP ONE (08:43)
[2022-12-15] MEDS ORDERED: PROPOFOL 10 MG/ML 20 ML VIAL IV ONE (08:43)
--- NOTE | 2022-12-15 08:44 | P.ANPRN ---
Procedure Note - Anesthesia - Nerve Block Performed Bilateral Erector Spinae Single Time Out Performed: Yes Date of Procedure: 12/15/22 Procedure Start Time: :08 Procedure Stop Time: :15 Location of Patient: PreOp Indication: Acute Post-Operative Pain, Requested by Surgeon Specifically requested for management of pain by DrLv: Avinash Cantu Sedation Type: Sedate with meaningful contact maintained Preparation: Sterile Prep Position: Prone Needle Types: Pajunk Needle Gauge: 21 Ultrasound used to visualize needle placement: Yes Ultrasound used to observe medication spread: Yes Injectate: 0.5% Ropivacaine (see comment for volume) (15 ml + 15 ml NS +4 mg Dexamethasone per side) Blood Aspirated: No Pain Paresthesia on Injection Noted: No Resistance on Injection: Normal Image Stored and Saved: Yes Events: Uneventful and Well Tolerated
[2022-12-15] MEDS ORDERED: BUPIVACAIN-EPI 0.25%-1:200,000 30 ML VIAL SQ ONE ×2 (09:10→10:01)
[2022-12-15 10:17] VITALS: TEMP 97.2
--- NOTE | 2022-12-15 10:18 | P.OP ---
Date of Procedure: 12/15/22 Preoperative Diagnosis: Bilateral recurrent inguinal hernia Umbilical hernia Postoperative Diagnosis: Same Procedure(s) Performed: Laparoscopic robotic system repair of bilateral recurrent inguinal hernia Procedure repair of umbilical hernia Excision of left cord lipoma Transverse subcostal block Anesthesia: [place] Surgeon: Avinash Cantu Pathology: other (Left cord lipoma) Condition: stable Disposition: PACU Description of Procedure: The patient's placed on the operating table in the supine position. The patient received general anesthesia. The patient's abdomen was prepped and draped in usual sterile fashion. The skin was anesthetized 1% local Xylocaine at the incision sites. Using an 11 blade a skin incision was made at the umbilicus. There was an umbilical hernia at the umbilicus measured approximately 3 cm down. The fascia was grasped with a Radiant and then the peritoneal cavity was entered with the Veress needle. Position of the Veress needle was confirmed with a positive drop test. After adequate insufflation a 5 mm trocar was placed into the peritoneal cavity. The Laparoscope was placed the peritoneal cavity. And a robotic 8 mm trocar was placed in the right lateral position and then another 8 mm robotic trochars placed in the left lateral position. The original 5 mm trocar was exchanged for a 12 mm trocar. A four-quadrant transversus abdominis plane block was then performed using 1% local Xylocaine. The patient was placed in reverse Trendelenburg and then the patient was docked to the robot. Next the peritoneum over top of the right inguinal hernia was incised and then using blunt and sharp dissection and electrocautery the hernia sac was dissected free from the floor of the inguinal canal. The hernia sac was completely reduced into the peritoneal cavity. And then using the Pro health unit supervisor mesh the hernia was repaired. The peritoneum was then sutured with 20V lock suture. Next the peritoneum over top of the left inguinal hernia was incised and then using blunt and sharp dissection and electrocautery the hernia sac was dissected free from the floor of the inguinal canal. The left cord lipoma was dissected free and sent to pathology. The hernia sac was completely reduced into the peritoneal cavity. And then using the Pro health unit supervisor mesh the hernia was repaired. The peritoneum was then sutured with 20V lock suture. The patient was then undocked the robot. The needle was withdrawn from the peritoneal cavity. The umbilical trocar site was closed with 0 Ethibond suture. The skin was closed interrupted 3-0 Monocryl suture. Dermabond dressing was applied. Patient was sent to recovery in stable condition.
[2022-12-15 11:43] LABS: Glucose,Whole Blood 173 mg/dL (70-110)
[2022-12-15 13:14] VITALS: BP 157/87; PULSE 66; RESP 16
== END 2022-12-15 13:30 | disposition home or self-care (01) ==
LOC: OR 06:30
PROVIDERS: ATTEND Surgery
DX: K40.20 Bilateral inguinal hernia, without obstruction or gangrene, not specified as recurrent (principal); K42.9 Umbilical hernia without obstruction or gangrene; G89.18 Other acute postprocedural pain; G47.33 Obstructive sleep apnea (adult) (pediatric); I48.91 Unspecified atrial fibrillation; J44.9 Chronic obstructive pulmonary disease, unspecified; I10 Essential (primary) hypertension; E78.5 Hyperlipidemia, unspecified; G47.30 Sleep apnea, unspecified; Z80.0 Family history of malignant neoplasm of digestive organs; Z87.891 Personal history of nicotine dependence; Z88.5 Allergy status to narcotic agent; Z79.899 Other long term (current) drug therapy
CPT/HCPCS: 64999; 76942; 86900; 86901; 80053; 86850; 49650; 49591; C1781 ×2; J2250; J0330; J1100; J2710; J0690; J2405; J3010 ×2; J2795; J2370; J2704; J1644; J2001

== ENCOUNTER → 2023-01-25 | Outpatient (CLI) | payer MEDICARE ==
--- NOTE | 2023-01-25 14:56 | XR ---
EXAMINATION TYPE: XR chest 2V DATE OF EXAM: 01/25/2023 COMPARISON: NONE HISTORY: Shortness of breath TECHNIQUE: Frontal and lateral views of the chest are obtained. FINDINGS: Scattered senescent parenchymal changes noted. Hyperinflation compatible with COPD. No evidence for infiltrate. No evidence for atelectasis. Heart size is stable. Mediastinal structures are stable and grossly unremarkable. No evidence for hilar prominence. Degenerative changes dorsal spine. IMPRESSION: 1. No evidence for acute pulmonary disease.
[2023-01-25 20:39] LABS: African American GFR (CKD) 58.2 (60.0-200.0); Albumin 4.7 g/dL (3.8-4.9); Albumin/Globulin Ratio 1.81 (1.60-3.17); Anion Gap 13.4 mmol/L (10.00-18.00); BUN/Creat Ratio 12.14 Ratio (12.00-20.00); Calcium 10.2 mg/dL (8.7-10.3); Carbon Dioxide 27.6 mmol/L (20.0-27.5); Globulin 2.6 g/dL (1.6-3.3); Non-African American GFR(CKD) 50.2 (60.0-200.0); Potassium 5.1 mmol/L (3.5-5.5); Prostate Specific Antigen 2.6 ng/mL (0.00-6.50); Total Bilirubin 0.8 mg/dL (0.30-1.20); Total Protein 7.3 g/dL (6.2-8.2)
== END | disposition home or self-care (01) ==
LOC: RADXRMAIN 14:29
PROVIDERS: ATTEND Urology
DX: C64.1 Malignant neoplasm of right kidney, except renal pelvis (principal); R97.20 Elevated prostate specific antigen [PSA]
CPT/HCPCS: 71046; 80053; 84153

== ENCOUNTER → 2023-08-09 | Outpatient (CLI) | payer MEDICARE ==
--- NOTE | 2023-08-09 12:12 | XR ---
EXAMINATION TYPE: XR chest 2V DATE OF EXAM: 08/09/2023 COMPARISON: 01/25/2023 TECHNIQUE: PA and lateral views submitted. HISTORY: Renal cell carcinoma FINDINGS: The lungs are clear and there is no pneumothorax, pleural effusion, or focal pneumonia. Heart size normal and no overt failure. Osseous structures demonstrate hypertrophic and degenerative changes of the spine. Emphysematous changes. There is increased density along the lateral margin of the left daniel g base stable dating back to prior exam. IMPRESSION: 1. COPD. There is an area of abnormal attenuation along the left lung base stable from 01/25/2023. The patient is scheduled for a CT of the abdomen and pelvis to be completed same day. Recommend correlat ion with that report as this area should be included in the [id number].
[2023-08-09 18:47] LABS: ALT 23 U/L (10-49); AST 22 U/L (14-35); Albumin 4.4 g/dL (3.8-4.9); Albumin/Globulin Ratio 1.69 Ratio (1.60-3.17); Alkaline Phosphatase 101 U/L (41-126); BUN/Creat Ratio 11.29 Ratio (12.00-20.00); Blood Urea Nitrogen 15.8 mg/dL (9.0-27.0); Calcium 10.3 mg/dL (8.7-10.3); Carbon Dioxide 27.9 mmol/L (21.6-31.8); Chloride 101 mmol/L (96-109); Globulin 2.6 g/dL (1.6-3.3); Glucose 113 mg/dL (70-110); Potassium 5.4 mmol/L (3.5-5.5); Prostate Specific Antigen 2.62 ng/mL (0.000-6.500); Sodium 138 mmol/L (135-145); Total Bilirubin 0.7 mg/dL (0.3-1.2)
--- NOTE | 2023-08-09 19:09 | CT ---
EXAMINATION TYPE: CT abdomen pelvis wo con DATE OF EXAM: 08/09/2023 COMPARISON: None INDICATION: HX OF RIGHT RENAL CANCER WITH NEPHRECTOMY. DLP: 1208 mGycm, Automated exposure control for dose reduction was used. CONTRAST: 0 mL of Isovue 300. Study performed without Oral Contrast TECHNIQUE: Axial images were obtained from above the diaphragm to the pubic rami in the axial plane a t 5 mm thick sections. Reconstructed images are reviewed on the computer in the coronal plane. FINDINGS: Limited CT sections are obtained the lung bases. There is some pleural calcification posterior left lung base.. CT ABDOMEN: Liver: There is a 1.4 cm cyst in the right lobe liver. An additional cyst measuring 1.7 cm left lobe liver. Spleen: Normal Pancreas: Normal Adrenal glands: The adrenal glands are normal. Gallbladder: Normal Kidneys: There is been a prior right nephrectomy.. No hydronephrosis is present. No cysts are prese nt. No renal stones are evident. No ureteral stone is evident. Aorta: Vascular calcification is within the aorta. Inferior vena cava: Normal. CT PELVIS: Loops of bowel within the abdomen and pelvis are normal. Diverticulosis without evidence of acute diverticulitis is present within the sigmoid colon. Appendix: Normal as visualized. Urinary bladder: Urinary bladder has diffuse wall thickening greater along the anterior aspect. Genitourinary structures: Prostate is prominent. Punctate Calcifications are within the prostate. Osseous structures: No suspicious lytic or sclerotic lesions. No expansile lesions are evident. IMPRESSION: 1. No suspicious changes to suggest recurrent or metastatic renal cancer. 2. Urinary bladder wall thickening is asymmetric greater along the anterior wall. 3. Prominent prostate. 4. Hepatic cysts
== END | disposition home or self-care (01) ==
LOC: RADCTMAIN 11:38
PROVIDERS: ATTEND Urology
DX: C64.1 Malignant neoplasm of right kidney, except renal pelvis (principal); N32.89 Other specified disorders of bladder; R97.20 Elevated prostate specific antigen [PSA]; K76.89 Other specified diseases of liver; J44.9 Chronic obstructive pulmonary disease, unspecified; R91.8 Other nonspecific abnormal finding of lung field
CPT/HCPCS: 71046; 74176; 80053; 84153

== ENCOUNTER → 2024-01-19 | Outpatient (CLI) | payer MEDICARE ==
--- NOTE | 2024-01-19 12:00 | XR ---
EXAMINATION TYPE: XR chest 2V DATE OF EXAM: 01/19/2024 11:41 AM CLINICAL INDICATION:Male, 73 years old with history of C64.1MALIGNANT NEOPLASM OF RIGHT KIDNEY, EXCEP T RENAL PELVIS; COMPARISON: Chest radiographs from 08/09/2023. TECHNIQUE: XR chest 2V Frontal and lateral views of the chest. FINDINGS: Lungs/Pleura: There is no evidence of pleural effusion, focal consolidation, or pneumothorax. Pulmonary vascularity: Unremarkable. Heart/mediastinum: Cardiomediastinal silhouette is unremarkable. Musculoskeletal: No acute osseous pathology. IMPRESSION: No acute cardiopulmonary disease/process.
[2024-01-19 19:32] LABS: ALT 24 U/L (10-49); AST 30 U/L (14-35); Albumin 4.5 g/dL (3.8-4.9); Albumin/Globulin Ratio 1.67 Ratio (1.60-3.17); Alkaline Phosphatase 101 U/L (41-126); BUN/Creat Ratio 8.43 Ratio (12.00-20.00); Blood Urea Nitrogen 11.8 mg/dL (9.0-27.0); Calcium 10.1 mg/dL (8.7-10.3); Carbon Dioxide 23.3 mmol/L (21.6-31.8); Chloride 96 mmol/L (96-109); Globulin 2.7 g/dL (1.6-3.3); Glucose 162 mg/dL (70-110); Potassium 5.4 mmol/L (3.5-5.5); Sodium 134 mmol/L (135-145); Total Bilirubin 0.6 mg/dL (0.3-1.2); Total Protein 7.2 g/dL (6.2-8.2)
== END | disposition home or self-care (01) ==
LOC: RADXRMAIN 11:25
PROVIDERS: ATTEND Urology
DX: C64.1 Malignant neoplasm of right kidney, except renal pelvis (principal); R97.20 Elevated prostate specific antigen [PSA]
CPT/HCPCS: 71046; 80053; 84153

== ENCOUNTER → 2024-07-13 | Outpatient (CLI) | payer MEDICARE ==
--- NOTE | 2024-07-13 11:47 | XR ---
EXAMINATION TYPE: XR chest 2V DATE OF EXAM: 07/13/2024 COMPARISON: 01/19/2024 CLINICAL INDICATION: Male, 74 years old with history of C64.1 RIGHT RENAL CANCER; , TECHNIQUE: XR chest 2V views of the chest. FINDINGS: Left lower lobe consolidation and tiny effusions stable. No pneumothorax. Heart size normal and no o vert failure. Osseous structures demonstrate hypertrophic and degenerative changes of the spine. AC j oint arthropathy. IMPRESSION: 1. Stable left-sided consolidation and tiny pleural effusion. [facility], , 07/13/2024 11:44 AM
--- NOTE | 2024-07-13 12:22 | CT ---
EXAMINATION TYPE: CT abdomen wo con DATE OF EXAM: 07/13/2024 COMPARISON: 08/09/2023 CLINICAL INDICATION: Male, 74 years old with history of C64.1 RIGHT RENAL CANCER; [facility], Hx RT renal ca , kidney removed. TECHNIQUE: CT DLP: 834.[address] CTDI: mGy Automated exposure control for dose reduction was used. FINDINGS: There is a stable densely calcified granuloma or pleural-based calcification in the left lower lobe. Gallbladder is normal and there is no gallstone, wall thickening, pericholecystic fluid or distention . There is no biliary ductal dilatation. There is no organomegaly of the liver, pancreas, spleen or adrenal glands. There is a stable well-cir cumscribed hypodensity in the left lobe of the liver which is likely a cyst. There are no renal calcifications or hydronephrosis. There is surgical absence of the right kidney st atus post resection for renal cancer. The caliber of the abdominal aorta is normal and there is no retroperitoneal adenopathy or hemorrhage . The bowel loops are normal in caliber is no evidence of obstruction. No inflammatory changes are iden tified in the mesentery and there is no free intraperitoneal air or fluid. The osseous structures and soft tissues are unremarkable. IMPRESSION: 1. Status post right nephrectomy for renal cell carcinoma. 2. no evidence of recurrent or metastatic disease. 3. No acute changes within the abdomen. [facility], , 07/13/2024 12:19 PM
[2024-07-13 15:25] LABS: ALT 21 U/L (10-49); AST 24 U/L (14-35); Albumin 4.5 g/dL (3.8-4.9); Alkaline Phosphatase 87 U/L (41-126); BUN/Creat Ratio 9.85 Ratio (12.00-20.00); Blood Urea Nitrogen 12.8 mg/dL (9.0-27.0); Calcium 9.7 mg/dL (8.7-10.3); Carbon Dioxide 25.6 mmol/L (21.6-31.8); Chloride 94 mmol/L (96-109); Globulin 2.5 g/dL (1.6-3.3); Glucose 119 mg/dL (70-110); Potassium 5.7 mmol/L (3.5-5.5); Sodium 130 mmol/L (135-145); Total Bilirubin 0.7 mg/dL (0.3-1.2)
== END | disposition home or self-care (01) ==
LOC: RADCTMAIN 11:04
PROVIDERS: ATTEND Urology
DX: C64.1 Malignant neoplasm of right kidney, except renal pelvis (principal); R97.20 Elevated prostate specific antigen [PSA]; J90 Pleural effusion, not elsewhere classified; Z90.5 Acquired absence of kidney; Z85.528 Personal history of other malignant neoplasm of kidney
CPT/HCPCS: 71046; 74150; 80053; 84153